=== PATIENT | female | born 1970 | race Caucasian/White ===

== ENCOUNTER 2018-01-26 11:45 | Emergency (ER) | payer OTHER ==
[2018-01-26 11:59] VITALS: BP 142/91
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
== END 2018-01-26 12:55 | disposition short-term general hospital (02) ==
LOC: UCEAST 11:45
DX: R53.83 Other fatigue (principal); R53.1 Weakness; R59.0 Localized enlarged lymph nodes; R42 Dizziness and giddiness; Z88.6 Allergy status to analgesic agent; Z88.0 Allergy status to penicillin; F17.200 Nicotine dependence, unspecified, uncomplicated
CPT/HCPCS: 93005; 99203; G0463

== ENCOUNTER 2018-01-26 13:17 | Emergency (ER) | payer OTHER ==
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
--- NOTE | 2018-01-26 15:08 | RAD ---
HISTORY: right arm weakness COMPARISONS: November 04, 2011 TECHNIQUE: Multiple contiguous axial CT scans were obtained of the head without intravenous contrast. FINDINGS: HEMORRHAGE/INFARCT: There is no hemorrhage or acute infarct. MASSES/SHIFT: There is no mass or shift. EXTRA-AXIAL SPACES: There are no extra-axial fluid collections. SULCI AND VENTRICLES: The sulci and ventricles are normal in size and position for the patient's stated age. CEREBRUM: There are no focal parenchymal abnormalities. BRAINSTEM: There are no focal parenchymal abnormalities. CEREBELLUM: There are no focal parenchymal abnormalities. VESSELS: The vessels are grossly normal. PARANASAL SINUSES: The paranasal sinuses are clear. ORBITS: The orbits are unremarkable. BONES AND SOFT TISSUE: There are prominent lymph nodes are noted along the posterior scalp that are new from the previous examination. . OTHER: None IMPRESSION: 1. NO ACUTE INTRACRANIAL PATHOLOGY. 2. PROMINENT LYMPH NODES OF THE POSTERIOR SCALP THAT ARE NEW FROM THE PREVIOUS EXAMINATION.
--- NOTE | 2018-01-26 15:15 | RAD ---
HISTORY: right arm weakness COMPARISONS: November 04, 2011 TECHNIQUE: Multiple contiguous axial CT scans were obtained of the cervical spine without intravenous contrast, with coronal and sagittal multiplanar reformations. FINDINGS: BRAIN: The visualized brain is unremarkable CENTRAL CANAL: Evaluation of the central canal is limited on CT technique; however, there is no obvious canalicular mass or epidural hemorrhage. ALIGNMENT: There is straightening of the cervical lordosis. VERTEBRAL BODIES: The odontoid process is intact. The atlantoaxial intervals are symmetric. The vertebral bodies are normal in attenuation, without fracture. JOINTS: There is no subluxation or dislocation. MUSCULATURE: Unremarkable INTERVERTEBRAL DISCS: There is mild diffuse loss of intervertebral disc height. AXIAL IMAGES: C2-C3: There is no osseous neural foraminal narrowing or central canal stenosis. C3-C4: There is no osseous neural foraminal narrowing or central canal stenosis. C4-C5: There is no osseous neural foraminal narrowing or central canal stenosis. C5-C6: There is no osseous neural foraminal narrowing or central canal stenosis. C6-C7: There is no osseous neural foraminal narrowing or central canal stenosis. C7-T1: There is no osseous neural foraminal narrowing or central canal stenosis. SOFT TISSUES: There are multiple prominent but nonpathologically enlarged lymph nodes along the anterior and posterior cervical chains bilaterally. These are new compared to the previous examination. OTHER: None. IMPRESSION: 1. NO OSSEOUS NEURAL FORAMINAL NARROWING OR CENTRAL CANAL STENOSIS. 2. STRAIGHTENING CERVICAL LORDOSIS. 3. MULTIPLE SUBCENTIMETER SHORT AXIS LYMPH NODES ALONG THE ANTERIOR AND POSTERIOR CERVICAL CHAINS. THERE IS NO LYMPHADENOPATHY BY SIZE CRITERIA, THOUGH THESE LYMPH NODES ARE NEW COMPARED TO THE 2012 EXAMINATION.
[2018-01-26 15:26] LABS: ABS Basophils 0 10^3/ul (0-0.2); ABS Eosinophils 0 10^3/ul (0-0.6); ABS Lymphocytes 0.8 10^3/ul (1.0-4.8); ABS Monocytes 0.4 10^3/ul (0-0.8); ABS Neutrophils 5.9 10^3/ul (1.5-7.7); ABS Nucleated RBC 0 10^3/ul; Eosinophil % 0.6 % (0-6); Hematocrit 45 % (35-47); Lymphocyte % 11.4 % (25-47); Mean Corpuscular HGB Conc 33 g/dl (31-36); Mean Corpuscular Hemoglobin 31 pg (27-31); Mean Corpuscular Volume 92 fL (80-97); Mean Platelet Volume 7.8 um3 (7.4-10.4); Nucleated Red Blood Cells % 0; Platelet Count 282 10^3/ul (150-450); Red Blood Count 4.89 10^6/ul (4.00-5.40); Red Cell Distribution Width 14 % (10.5-15); White Blood Count 7.3 10^3/ul (3.5-10.8)
[2018-01-26 15:45] LABS: EGFR Non-African American 84.9 (>60)
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
--- NOTE | 2018-01-26 16:48 | RAD ---
Indication: Shortness of breath. 2 views of the chest including dual energy PA views demonstrate no mediastinal shift. Heart is of normal size and configuration. Lung oseguera are clear. No changes noted since January 25, 2014. IMPRESSION: No active cardiopulmonary disease is noted.
[2018-01-26 17:14] VITALS: BP 120/83
== END 2018-01-26 17:15 | disposition home or self-care (01) ==
LOC: ED 13:17
DX: R29.898 Other symptoms and signs involving the musculoskeletal system (principal); R59.1 Generalized enlarged lymph nodes; J44.9 Chronic obstructive pulmonary disease, unspecified
CPT/HCPCS: 36415; 70450; 71046; 72125; 80053; 82550; 83735; 84484; 85025; 86140; 86308; 86618; 99281